=== PATIENT | male | born 1985 | race Two or more races ===

== ENCOUNTER 2022-04-08 07:15 | Outpatient (CLI) | payer OTHER | END 2022-04-08 07:23 | disposition home or self-care (01) | LOC: RAD 07:15 | PROVIDERS: ATTEND Urology | DX: N20.0 Calculus of kidney (principal) ==

== ENCOUNTER 2022-04-16 06:00 | Day surgery (SDC) | payer OTHER | END 2022-04-16 15:30 | disposition home or self-care (01) | LOC: CIR.AMB 06:00 | PROVIDERS: ATTEND Urology | DX: N20.1 Calculus of ureter (principal); Z88.8 Allergy status to other drugs, medicaments and biological substances; Z20.822 Contact with and (suspected) exposure to COVID-19 ==

== ENCOUNTER 2022-04-21 11:03 | Outpatient (CLI) | payer OTHER | END 2022-04-21 11:14 | disposition home or self-care (01) | LOC: RAD 11:03 | PROVIDERS: ATTEND Urology | DX: N20.1 Calculus of ureter (principal) ==